=== PATIENT | male | born 1980 | race Caucasian/White ===

== ENCOUNTER 2017-02-01 08:14 | Emergency (ER) | payer SELFPAY ==
[2017-02-01 08:21] VITALS: BP 119/70; PULSE 71; TEMP 97.9; BMI 27.6
[2017-02-01] MEDS ORDERED: KETOROLAC TROMETHAMINE 60 MG/2 ML VIAL IM ONE (08:58)
[2017-02-01] MEDS ORDERED: KETOROLAC TROMETHAMINE 60 MG/2 ML VIAL ONE (09:01)
--- NOTE | 2017-02-01 09:13 | PDOC ---
History of Present Illness - General Chief Complaint: Back Pain Stated Complaint: BACK PAIN Time Seen by Provider: 02/01/17 08:56 History Source: Patient Exam Limitations: No Limitations - History of Present Illness Initial Comments: 02/01/17 09:03 CHIEF COMPLAINT: [Lower back pain] HISTORY OF PRESENT ILLNESS:[ 36]-year-old [male],[ presents emergency Department with right lower back pain, radiating down right lateral leg, patient reports pain started after moving a pile of clothes, turned to the right and felt a spasm to the lower back. No neurosensory deficits, no bowel or bladder difficulty incontinence or urinary retention, no saddle anesthesia, no footdrop. No history of IVDU or history of cancer. ] REVIEW OF SYSTEMS: GENERAL: Afebrile, denies any weakness RESPIRATORY: No cough, wheezing, or hemoptysis. CARDIAC: No chest pain or shortness of breath MUSCULOSKELETAL: Pain to generalized lower back. No point tenderness. Pain worse on [right than left. ] SKIN : No erythema, no bruising, no deformity. GI/: Denies any abdominal pain, no urinary difficulty, incontinence or urinary retention. RECTAL: Denies any difficulty this A.m. NEUROLOGICAL: Denies any numbness or tingling. No neurosensory deficits. PHYSICAL EXAM: GENERAL: The patient is awake, alert, and fully oriented, in no acute distress. RESPIRATORY: Lungs clear bilaterally, no rhonchi wheezes or crackles CARDIAC: S1-S2 audible, no murmur rub or gallop MUSCULOSKELETAL: Pain to generalized lower back, radiating to right lateral leg , no tingling or sensory deficit. Less than 2 second cap refill, +4 popliteal and pedal pulses. Positive noted to lower back.No spinal point tenderness. Normal reflexive and no deficits to sensation or strength. GI/: Abdomen soft, nontender, nondistended. No rebound tenderness. No masses palpable. RECTAL: [Deferred patient with no neurological findings] SKIN: Warm, Dry, normal turgor, no erythema, no edema no bruising. Past History - Past Medical History Allergies/Adverse Reactions: Allergies Allergy/AdvReac Type Severity Reaction Status Date / Time No Known Allergies Allergy Verified 02/01/17 08:17 Home Medications: Ambulatory Orders Cyclobenzaprine HCl [Flexeril 10 mg] 10 mg PO BID PRN #20 tablet MDD 2 02/01/17 Naproxen [Naprosyn -] 500 mg PO BID #20 tablet 02/01/17 COPD: No Other medical history: DENIES. - Suicide/Smoking/Psychosocial Hx Smoking History: Former smoker Have you smoked in the past 12 months: No Information on smoking cessation initiated: No *Physical Exam - Vital Signs Last Vital Signs Temp Pulse Resp BP Pulse Ox 97.9 F 71 19 119/70 100 02/01/17 08:18 02/01/17 08:18 02/01/17 08:18 02/01/17 08:18 02/01/17 08:18 Medical Decision Making - Medical Decision Making 02/01/17 15:19 A/P: Patient here for evaluation of spasm to generalized lower back there is no acute neurosensory deficits, no bowel or bladder difficulty, no footdrop, no saddle anesthesia. Toradol 60 mg IM 1 given, with good result patient discharged home on Naprosyn and Flexeril follow-up with PMD. No heavy lifting greater than 10 pounds. I discussed the physical exam findings, ancillary test results and final diagnoses with the patient. I answered all of the patient's questions. The patient was satisfied with the care received and felt comfortable with the discharge plan and treatment plan. The patient will call to arrange follow-up and will return to the Emergency Department with any new, persistent or worsening symptoms. *DC/Admit/Observation/Transfer Diagnosis at time of Disposition: Back pain Qualifiers: Back pain location: low back pain Chronicity: acute Back pain laterality: right Sciatica presence: with sciatica Sciatica laterality: sciatica of right side Qualified Code(s): M54.41 - Lumbago with sciatica, right side - Discharge Dispostion Disposition: HOME Condition at time of disposition: Stable Admit: No - Prescriptions Prescriptions: Cyclobenzaprine HCl [Flexeril 10 mg] 10 mg PO BID PRN #20 tablet MDD 2 PRN Reason: Pain Naproxen [Naprosyn -] 500 mg PO BID #20 tablet - Referrals Referrals: Jax Hernandez MD [Primary Care Provider] - Fernie Peace MD [Staff Physician] - - Patient Instructions Printed Discharge Instructions: Back Pain (Alternative Therapy), Low Back Pain Additional Instructions: 1. Please return to the emergency department with any numbness, tingling, weakness, numbness or tingling to groin or legs, or loss of bowel or bladder function. 2. Use pain medication as ordered. 3. Please is to followup in the office of Dr. peace for evaluation within a week if no improvement. 4. Ice or heat 5. Refrain from lifting anything above 10 pounds, until pain resolved. - Post Discharge Activity Forms/Work/School Notes: Back to Work
== END 2017-02-01 10:40 | disposition home or self-care (01) ==
LOC: JERFT 08:14
PROC: 3E0233Z Introduction of Anti-inflammatory into Muscle, Percutaneous Approach (ICD-10-PCS; principal; 2017-02-01)
DX: M54.41 Lumbago with sciatica, right side (principal)
CPT/HCPCS: 99281-25

== ENCOUNTER 2017-08-17 19:33 | Emergency (ER) | payer SELFPAY ==
[2017-08-17 19:42] VITALS: BP 115/72; PULSE 84; TEMP 98.8; BMI 29.5
--- NOTE | 2017-08-17 19:42 | PDOC ---
Rapid Medical Evaluation Time Seen by Provider: 08/17/17 19:40 Medical Evaluation: Allergies Allergy/AdvReac Type Severity Reaction Status Date / Time No Known Allergies Allergy Verified 02/01/17 08:17 08/17/17 19:40 Patient c/o: low back pain x 1 week, no relief with flexeril and motrin, radiates down rt leg, no weakness, incontinence Patient on brief exam: ambulatory, no point tenderness Patient ordered for: sacral xray Patient to proceed to the ED Discharge Disposition - Diagnosis Sciatic pain - Referrals - Patient Instructions - Post Discharge Activity
[2017-08-17] MEDS ORDERED: KETOROLAC TROMETHAMINE 60 MG/2 ML VIAL ONE (21:25)
[2017-08-17] MEDS ORDERED: diazePAM 5 MG TABLET PO ONE (21:25)
[2017-08-17] MEDS ORDERED: KETOROLAC TROMETHAMINE 60 MG/2 ML VIAL IM ONE (21:25)
--- NOTE | 2017-08-17 21:25 | PDOC ---
History of Present Illness - General History Source: Patient Exam Limitations: No Limitations - History of Present Illness Initial Comments: 08/17/17 21:59 The patient is a 37-year-old male with no significant past medical history presents to the emergency department with back pain. The patient reports pain to the Right lower back that radiated to the L. testicles and leg, with no relief noted with Advil (2 taken today), Flexeril and a hot patch. The patient reports the pain is aggravated by any movement, with no relief factor noted, with the associated sensation of numbness, tingling, and pain. The patient reports a similar incident earlier this year, an onset of similar pain s/p putting away laundry, which was relieved after a shot of Flexeril. The patient reports suffering a fall 5 years prior, landed on his back but didnt seek care. The patient states he has an appointment with his PCP in 2 days. Denies fever, chills, cough or a headache. Denies Chest pain, abdominal pain, flank pain or CVA tenderness. Denies dysuria, hematuria, frequency or urgency to urinate. Denies diarrhea or constipation. Denies bowel incontinence. Allergies: NKDA Social history: Former smoker. Surgical history: None reported PCP: Jax Hernandez MD <Berta Bartholomew - Last Filed: 08/17/17 21:59> <Sarah Pink - Last Filed: 08/17/17 22:42> - General Chief Complaint: Back Pain Stated Complaint: PAIN Time Seen by Provider: 08/17/17 19:40 Past History <Berta Bartholomew - Last Filed: 08/17/17 21:59> - Past Medical History COPD: No Other medical history: DENIES - Immunization History Immunization Up to Date: Yes - Suicide/Smoking/Psychosocial Hx Smoking History: Never smoked Have you smoked in the past 12 months: No Information on smoking cessation initiated: No Hx Alcohol Use: No Drug/Substance Use Hx: No <Sarah Pink - Last Filed: 08/17/17 22:42> - Past Medical History Allergies/Adverse Reactions: Allergies Allergy/AdvReac Type Severity Reaction Status Date / Time No Known Allergies Allergy Verified 08/17/17 19:42 Home Medications: Ambulatory Orders Diazepam [Valium] 5 mg PO BID #10 tablet MDD 2 08/17/17 predniSONE [Deltasone -] 40 mg PO DAILY #10 tablet 08/17/17 Review of Systems - Review of Systems Able to Perform ROS?: Yes Comments:: 08/17/17 21:59 GENERAL/CONSTITUTIONAL: No fever or chills. No weakness. HEAD, EYES, EARS, NOSE AND THROAT: No change in vision. No ear pain or discharge. No sore throat. CARDIOVASCULAR: No chest pain or shortness of breath. RESPIRATORY: No cough, wheezing, or hemoptysis. GASTROINTESTINAL: No nausea, vomiting, diarrhea or constipation. GENITOURINARY: (+) L. Testicle pain. No dysuria, frequency, or change in urination. MUSCULOSKELETAL: (+) Lower back pain. (+) L. leg pain.No joint or muscle swelling or pain. No neck pain. SKIN: No rash NEUROLOGIC: No headache, vertigo, loss of consciousness, or change in strength/ sensation. ENDOCRINE: No increased thirst. No abnormal weight change. HEMATOLOGIC/LYMPHATIC: No anemia, easy bleeding, or history of blood clots. ALLERGIC/IMMUNOLOGIC: No hives or skin allergy. <Berta Bartholomew - Last Filed: 08/17/17 21:59> *Physical Exam - Vital Signs Last Vital Signs Temp Pulse Resp BP Pulse Ox 98.8 F 84 20 115/72 98 08/17/17 19:39 08/17/17 19:39 08/17/17 19:39 08/17/17 19:39 08/17/17 19:39 - Physical Exam Comments: 08/17/17 22:00 GENERAL: Awake, alert, and fully oriented, in no acute distress HEAD: No signs of trauma EYES: PERRLA, EOMI, sclera anicteric, conjunctiva clear ENT: Auricles normal inspection, hearing grossly normal, nares patent, oropharynx clear without exudates. Moist mucosa NECK: Normal ROM, supple, no lymphadenopathy, JVD, or masses LUNGS: Breath sounds equal, clear to auscultation bilaterally. No wheezes, and no crackles HEART: Regular rate and rhythm, normal S1 and S2, no murmurs, rubs or gallops ABDOMEN: Soft, nontender, normoactive bowel sounds. No guarding, no rebound. No masses EXTREMITIES/BACK: no saddle anesthesia. Tenderness to the paraspinal muscle. L4- L5 muscle tightness.Mild Midline tenderness. No bruises noted. (+) Straight leg raise on the L. leg. Strength 5/5 bilaterally. Reflex 2+ normal. Normal range of motion, no edema. No clubbing or cyanosis. No cords, erythema, or tenderness NEUROLOGICAL: (+) No neurosensory deficits, Cranial nerves II through XII grossly intact. Normal speech, normal gait SKIN: Warm, Dry, normal turgor, no rashes or lesions noted. <Berta Bartholomew - Last Filed: 08/17/17 21:59> - Vital Signs Last Vital Signs Temp Pulse Resp BP Pulse Ox 98.8 F 84 20 115/72 98 08/17/17 19:39 08/17/17 19:39 08/17/17 19:39 08/17/17 19:39 08/17/17 19:39 <Sarah Pink - Last Filed: 08/17/17 22:42> ED Treatment Course - Medications Given in the ED: ED Medications Discontinued Medications Generic Name Dose Route Start Last Admin Trade Name Darin PRN Reason Stop Dose Admin Diazepam 5 mg 08/17/17 21:25 08/17/17 21:32 Valium - PO 08/17/17 21:26 5 mg ONCE ONE Administration Ketorolac Tromethamine 60 mg 08/17/17 21:25 08/17/17 21:32 Toradol Injection - IM 08/17/17 21:26 60 mg ONCE ONE Administration <Berta Bartholomew - Last Filed: 08/17/17 21:59> Medical Decision Making - Medical Decision Making 08/17/17 21:25 A portion of this note was documented by scribe services under my direction. I have reviewed the details of the note, within reason, and agree with the documentation with the following case summary and management plan written by me. <Sarah Pink - Last Filed: 08/17/17 22:42> *DC/Admit/Observation/Transfer - Attestations Scribe Attestion: 08/17/17 22:02 Documentation prepared by Berta Bartholomew, acting as center medical specialist for Sarah SCHROEDER. <Berta Bartholomew - Last Filed: 08/17/17 21:59> - Discharge Dispostion Decision to Admit order: No <Sarah Pink - Last Filed: 08/17/17 22:42> Diagnosis at time of Disposition: Sciatic pain Qualifiers: Laterality: right Qualified Code(s): M54.31 - Sciatica, right side Back pain Qualifiers: Back pain location: low back pain Chronicity: acute Back pain laterality: left Sciatica presence: with sciatica Sciatica laterality: sciatica of left side Qualified Code(s): M54.42 - Lumbago with sciatica, left side - Discharge Dispostion Disposition: HOME Condition at time of disposition: Improved - Referrals Referrals: Jax Hernandez MD [Primary Care Provider] - - Patient Instructions Printed Discharge Instructions: DI for Low Back Pain Additional Instructions: You have low back pain due to a muscle spasm. Please take prednisone for the next 5 days to help with your symptoms. Follow the dosing instructions on the bottle. You were also prescribed Valium. Please take this medication every [address] after taking this medication as it may make you sleepy. You may use warm compresses on your back to help with her symptoms. Please follow- up with your primary care doctor. If your symptoms do not resolve in 3-5 days, follow-up with orthopedics. A referral has been provided for you. Return to the emergency department if you have worsening back pain, bladder or bowel incontinence, numbness and tingling in her legs, changes in the way you walk, or any new or worsening symptoms. - Post Discharge Activity Forms/Work/School Notes: Back to Work
[2017-08-17] MEDS ORDERED: diazePAM 5 MG TABLET ONE (21:26)
== END 2017-08-17 22:52 | disposition home or self-care (01) ==
LOC: JERFT 19:33
PROC: 3E0233Z Introduction of Anti-inflammatory into Muscle, Percutaneous Approach (ICD-10-PCS; principal; 2017-08-17)
DX: M54.42 Lumbago with sciatica, left side (principal); M54.31 Sciatica, right side
CPT/HCPCS: 72220-TC-FY; 99281-25

== ENCOUNTER 2019-03-02 08:30 | Day surgery (SDC) | payer OTHER ==
[2019-02-28 13:48] VITALS: BMI 29.8
[2019-03-02] MEDS ORDERED: LIDOCAINE HCL 2% (20ML MULTI-DOSE VIAL) ONE (09:29)
[2019-03-02] MEDS ORDERED: MIDAZOLAM HCL 2 MG/2 ML SINGLE DOSE VIAL ONE ×2 (09:34)
[2019-03-02] MEDS ORDERED: PROPOFOL 20 ML ONE (09:34)
[2019-03-02] MEDS ORDERED: LIDOCAINE HCL/PF 2% SDV 5ML VIAL ONE (09:36)
[2019-03-02] MEDS ORDERED: BUPIVACAINE HCL/PF 0.5% (5MG/ML) 10 ML VIAL IJ ONE (10:30)
[2019-03-02] MEDS ORDERED: ceFAZolin SODIUM 1 GM VIAL ONE (10:43)
[2019-03-02] MEDS ORDERED: BUPIVACAINE HCL/PF 0.5% (5MG/ML) 10 ML VIAL ONE (11:09)
[2019-03-02] MEDS ORDERED: PROMETHAZINE HCL 25 MG/1 ML VIAL IVPUSH PRN (11:50)
[2019-03-02] MEDS ORDERED: oxyCODONE HCL 5 MG TABLET PO PRN (11:50)
[2019-03-02] MEDS ORDERED: ONDANSETRON 4 MG/2 ML VIAL IVPUSH PRN (11:50)
[2019-03-02] MEDS ORDERED: oxyCODONE HCL 5 MG TABLET ONE ×2 (13:20→13:41)
[2019-03-02] MEDS: oxyCODONE HCL 5 MG TABLET PO PRN ×2 (13:25→13:42)
--- NOTE | 2019-03-02 13:25 | OP ---
DATE OF OPERATION: 03/02/2019 PREOPERATIVE DIAGNOSIS: Right 5th metacarpal neck fracture. POSTOPERATIVE DIAGNOSIS: Right 5th metacarpal neck fracture. OPERATIVE PROCEDURE: Open reduction and internal fixation of right 5th metacarpal neck fracture. SURGEON: Elise Hernandez MD PATIENT SCHEDULING COORDINATOR: ALEXANDRE Landaverde ANESTHESIA: General. COMPLICATIONS: None. ESTIMATED BLOOD LOSS: Minimal. INDICATION FOR PROCEDURE: The patient is a 38-year-old male with the above finding, indicated for operative treatment. Risks, benefits and alternatives were discussed with the patient at length. Proper informed consent was obtained. PROCEDURE: After proper identification of patient and correct operative site patient brought to the operating room and placed supine on the table, all bony prominences well padded. General anesthesia was given. Intravenous antibiotics were given. A timeout procedure was performed. Right upper extremity was prepped and draped in usual sterile fashion. Well-padded tourniquet was placed over the sterile prep. Esmarch bandage used to exsanguinate right upper extremity. Tourniquet was inflated to 250 mmHg. A small longitudinal incision made over the metacarpal head dorsally. Incision was taken sharply through the skin, with blunt and sharp dissection through the subcutaneous tissues. Small rent was made into the ulnar aspect of the extensor mechanism just ulnar to the extensor tendon itself. A guidewire was placed through the metacarpal head with the fracture reduced into the metacarpal shaft. An ExsoMed screw was then placed over this after reaming with a 4.5-mm by 40-mm screw. This provided satisfactory reduction and fixation with proper size and confirmed radiographically. Finger was anatomically aligned with no rotation and was able to be taken through a full range of motion without difficulty. Wound was irrigated and repaired with a 5-0 fast-absorbing plain gut suture. Sterile dressings were applied. Splint was placed. Patient reversed from anesthesia and brought to the recovery room in stable condition. He tolerated procedure well. Jb Allen, the office clerk assistant, was integral throughout the procedure. The procedure could not have been performed without a skilled operative office clerk assistant. ELISE HERNANDEZ M.D. [id number]
[2019-03-02 14:26] VITALS: BP 125/75; PULSE 65; TEMP 97.9
== END 2019-03-02 14:26 | disposition home or self-care (01) ==
LOC: FASU 08:30
PROVIDERS: ATTEND Orthopaedic Surgery Hand Surgery
PROC: 0PSP04Z Reposition Right Metacarpal with Internal Fixation Device, Open Approach (ICD-10-PCS; principal; 2019-03-02 10:00)
DX: S62.336A Displaced fracture of neck of fifth metacarpal bone, right hand, initial encounter for closed fracture (principal); X58.XXXA Exposure to other specified factors, initial encounter; Y93.9 Activity, unspecified; Y92.9 Unspecified place or not applicable
CPT/HCPCS: 73130-TC-RT-FY; 94760

== ENCOUNTER 2024-09-01 22:02 | Emergency (ER) | payer OTHER ==
[2024-09-01 22:10] VITALS: BP 122/80; PULSE 68; RESP 18; TEMP 98.3; BMI 27.4
[2024-09-01] MEDS ORDERED: LIDOCAINE HCL 1%, 10 MG/ML (20ML VIAL) ONE (22:55)
[2024-09-01] MEDS ORDERED: LIDOCAINE HCL/PF 1% SDV 5ML VIAL ONE (22:55)
[2024-09-01] MEDS: LIDOCAINE HCL 1%, 10 MG/ML (50 mL VIAL) SQ ONE (23:24)
[2024-09-01] MEDS: LIDOCAINE HCL 2% (50ML VIAL) INF ONE (23:24)
== END 2024-09-01 23:25 | disposition home or self-care (01) ==
LOC: JER 22:02
PROC: 0HQBXZZ Repair Right Upper Arm Skin, External Approach (ICD-10-PCS; principal; 2024-09-01)
DX: S51.011A Laceration without foreign body of right elbow, initial encounter (principal); S61.219A Laceration without foreign body of unspecified finger without damage to nail, initial encounter; W01.110A Fall on same level from slipping, tripping and stumbling with subsequent striking against sharp glass, initial encounter
CPT/HCPCS: 99291